=== PATIENT | female | born 1940 | race Hispanic/Latino ===

== ENCOUNTER → 2019-01-24 | Outpatient (CLI) | payer OTHER, MEDICARE ==
[~2019-01-24] MED LIST: ALEN70TA10 PO; AMLO5TAB9 PO; CARB15DR2 OP; INSLAN SQ; SIMV40TA59 PO; SITA100T12 PO; VALS320T16 PO
== END | disposition home or self-care (01) ==
LOC: RAH 12:06
PROVIDERS: ATTEND Internal Medicine
DX: R09.89 Other specified symptoms and signs involving the circulatory and respiratory systems (principal); I73.9 Peripheral vascular disease, unspecified
CPT/HCPCS: 93922

== ENCOUNTER → 2025-04-18 | Outpatient (CLI) | payer OTHER, MEDICAID ==
[~2025-04-18] MED LIST changes: -ALEN70TA10 PO; +ALEN70TA80 PO; +AMLO-257 PO; -AMLO5TAB9 PO; -CARB15DR2 OP; +DEXT1DRO12 OP; -INSLAN SQ; +INSU100V37 SQ; +LEVO25CA5 PO; +TELM40TA8 PO; -VALS320T16 PO
--- NOTE | 2025-04-22 21:48 | HMCSR ---
APPROVED REPORT EXAM: Two-dimensional and M-mode echocardiogram with Doppler and color Doppler. INDICATION ICD: Abnormal electrocardiogram R94.31 2D Dimensions RVDd3.2 cmLVEF(%)64.6 (>50%)LVED Vol(simp.)67.0 mL IVSd1.3 (0.7-1.1cm)FS(%)35 %LVES Vol(simp.)29.0 mL LVDd4.6 (3.8-5.6cm)LA (2D)3.7 (1.6-4.0cm)LVEF(%, simp.)57 % PWd1.1 (0.7-1.1cm)Ao Root(2D)3.0 (2.0-3.7cm)LA ESV INDEX (BP)25.35 mL/m2 IVSs1.7 cmLVOT diam2.0 (1.8-2.4cm) LVDs3.0 (2.5-4.0cm) PWs1.2 cm M-Mode Dimensions EPSS0.5 cm LA (MM)4.0 (1.6-4.0cm) Ao Root(MM)3.4 (2.0-3.7cm) Aortic Valve AoV Vmax1.7 m/Linda Peak GR11.4 mmHgLVOT Vmax1.2 m/s AoV VTI0.4 mAo Mean GR6.0 mmHgLVOT VTI0.31 m RILEY (VMAX)2.29 cm2AVA (VTI) 2.7 cm2 Mitral Valve MV E Vmax83.9 cm/sDECEL [id number] ms MV A Azoe514.0 cm/sP 1/2 T49 ms E/A ratio0.7MVA (PHT)4.5 cm2 TDI E/E' Yvwmjf60.0E/E' Kxebuzs77.3 Medial E' Peak V4.67 cm/sLateral E' Peak V4.14 cm/s Pulmonary Valve PV Vmax1.4 m/sPV VTI0.23 mPV Mean GR3.0 mmHg PV Peak GR7.4 mmHg Tricuspid Valve TR Vmax2.3 m/sRVSP20.3 mmHg TR Peak GR20.3 mmHg Left Ventricle The left ventricle is normal size. There is normal LV segmental wall motion. Mild to moderate concent avani left ventricular hypertrophy. LVEF is 55-60%. Indeterminate diastolic dysfunction. Right Ventricle The right ventricle is normal size. The right ventricular systolic function is normal. Device lead is present in the right ventricle. Atria The left atrium size is normal. The right atrium size is normal. Device lead is present in the right atrium. Aortic Valve The aortic valve is normal in structure. No aortic regurgitation is present. There is no aortic valvu lar stenosis. Mitral Valve The mitral valve is normal in structure. Mitral regurgitation is trace. There is no mitral valve sten osis. Tricuspid Valve The tricuspid valve is normal in structure. There is trace tricuspid valve regurgitation noted. Pulmonic Valve The pulmonary valve is normal in structure. There is no pulmonic valvular regurgitation. Great Vessels The aortic root is normal in size. The IVC is normal in size and collapses >50% with inspiration. Pericardium There is no pericardial effusion. Other Information Quality : Adequate Conclusion LVEF is 55-60%.
== END | disposition home or self-care (01) ==
LOC: RAH 12:41
PROVIDERS: ATTEND Internal Medicine
DX: R94.31 Abnormal electrocardiogram [ECG] [EKG] (principal); I11.9 Hypertensive heart disease without heart failure
CPT/HCPCS: 93306

== ENCOUNTER 2025-09-20 09:22 | Emergency (ER) | payer OTHER, MEDICAID ==
[~2025-09-20] VITALS: Ht 149.9 cm; Wt 74.8 kg
--- NOTE | 2025-09-20 11:13 | HMCIMG ---
EXAM: CR Cervical spine, 5 View. CLINICAL HISTORY: fall COMPARISON: None provided. FINDINGS: BONES: No acute fracture or aggressive appearing osseous lesion. Heights of the vertebral bodies are maintained. Straightening of the expected lordotic curvature. DISCS/DEGENERATIVE CHANGES: Degenerative disc space narrowing C5-6. Anterior marginal spurring of the inferior endplates of C3-C6. Posterior vertebral body alignment is within normal limits. Moderate cervical spondylosis degenerative changes. SOFT TISSUES: No prevertebral soft tissue swelling. The visualized lung apices are clear. IMPRESSION: No acute cervical spine abnormality. Moderate cervical spondylosis. Straightened cervical spine. May represent paraspinal muscular spasm. Clinically correlate. If there are concerns for cervical radiculopathy, MRI exam may be useful for more complete evaluation. /[place]
--- NOTE | 2025-09-20 11:20 | HMCIMG ---
CT OF THE BRAIN WITHOUT CONTRAST CLINICAL INDICATION: Fall TECHNIQUE: Multiple contiguous axial CT images were obtained through the brain without the administration of intravenous contrast. Coronal and sagittal reconstructions were also obtained. COMPARISON: None available FINDINGS: The ventricular system and cortical sulci demonstrate a normal size and configuration for the patients age. There is patchy hypoattenuation of the periventricular, deep, and subcortical matter bilaterally consistent with microangiopathic ischemic disease. There are no extra-axial collections, mass effect, or midline shift. The basal cisterns are patent. The gamino-white matter differentiation is preserved. The midline structures and cervicomedullary junction are unremarkable. There is no evidence of acute intracranial hemorrhage or areas of acute territorial infarction. Vascular calcification is present. No fractures are identified. The calvarium is unremarkable in appearance. No suspicious lytic or sclerotic osseous lesions are seen. There is an air-fluid level within the left sphenoid sinus disease with acute sinusitis. The mastoid air cells are well pneumatized and well aerated. A right intraocular lens implant is identified. There is hyperdense material within the left orbital globe which may represent silicone oill. A left-sided scleral banding device appears to be present. IMPRESSION: 1. No CT evidence of an acute intracranial process. 2. Age-appropriate involutional changes and microangiopathic ischemic disease. 3. Acute left sphenoid sinusitis. /[place]
--- NOTE | 2025-09-20 11:28 | ERN ---
General Chief Complaint: Head Injury Stated Complaint: FALL W/HEAD INJURY Time Seen by MD: 09:29 Source: patient, EMS History of Present Illness Initial Comments Patient is a 74-year-old female coming in after she had a slip and fall. Per patient she was walking down her driveway slipped on some cobblestoning and landed on her back of her head. She states he did not lose consciousness and her main complaint is the occipital region of his scalp. Allergies: Coded Allergies: aspirin (Unverified Allergy, Unknown, 09/13/16) Home Meds Reported Medications Insulin Degludec (Tresiba) 100 Unit/1 Ml Vial, 60 UNIT SQ BID, VIAL 06/24/21 Dextran 70/Hypromellose/Pf (Genteal Tears 0.1%-0.3% Drop) 1 Each Droperette, 1 EACH OP DAILY, DROP 06/24/21 Telmisartan (Telmisartan) 40 Mg Tablet, 40 MG PO DAILY, TAB 06/24/21 Levothyroxine Sodium (Levothyroxine) 25 Mcg Capsule, 25 MCG PO DAILY, CAP 06/24/21 Simvastatin (ZOCOR) 40 Mg Tablet, 40 MG PO HS, TAB 09/13/16 Sitagliptin Phosphate (Januvia) 100 Mg Tablet, 100 MG PO DAILY, TAB 09/13/16 Amlodipine Besylate (Amlodipine Besylate) 5 Mg Tablet, 5 MG PO DAILY, TAB 09/13/16 Alendronate Sodium (Alendronate Sodium) 70 Mg Tablet, 70 MG PO QWEEK, TAB 09/13/16 Past Medical History Past Medical History: Diabetes-Type II, High Cholesterol, Hypertension, Hypothyroid Medical History Other: LEGALLY BLIND Past Surgical History: Appendectomy, Cholecystectomy, Surgical History Other: Eye surgery, arm surgery ROS Dictation CONSTITUTIONAL: No chills, no fever, no weakness, no diaphoresis, no malaise. HEAD/FACE: No signs of trauma. EENT: No eye pain, no blurred vision, no tearing, no double vision, no ear pain, no ear discharge, no nose pain, no nasal congestion, no throat pain, no throat swelling, no mouth pain. RESPIRATORY: No cough, no orthopnea, no SOB, no stridor, no wheezing. CARDIOVASCULAR: No chest pain, no edema, no palpitations, no syncope. GASTROINTESTINAL/ABDOMINAL: No abdominal pain, no constipation, no diarrhea, no nausea, no vomiting. GENITOURINARY: No abnormal discharge, no dysuria, no frequent urination, no hematuria. No complaints of pain in the genitals. MUSCULOSKELETAL: No back pain, no gout, no joint pain, no joint swelling, no muscle pain, no muscle stiffness, no neck pain. INTEGUMENTARY: No change in color, no change in hair/nails, no dryness, no lesion, no lumps, no rash. NEUROLOGICAL/PSYCH: No anxiety, not depressed, no emotional problem, no headache, no numbness, no pre-existing deficit, no history of seizures, no tremors, no weakness. HEMATOLOGIC/LYMPHATIC: Not anemic, no history of blood clots, no apparent bleeding, no bruising, glands not swollen. All Systems Negative, Except as Noted. Physical Exam Physical Exam Dictation VITAL SIGNS: Reviewed. GENERAL APPEARANCE: Alert, oriented x3, no acute distress, obese. HEAD AND FACE: Non-traumatic. EYES: PERRL, pink conjunctivas, eyelid no trauma, anterior chamber clear. EARS: Pinnas intact and no signs of trauma or erythema. Ear canals clear and no discharge. TMs no erythema. NOSE: No discharge, no bleeding. OROPHARYNX: Mouth normal, teeth no caries, tongue pink. Pharynx clear, no erythema. Tonsils no exudates, no abscesses noted. Mucous membrane moist. NECK: Supple, non-tender, no thyromegaly, no masses, no JVD, no bruits. BREAST: Deferred. CHEST: No tenderness, no crepitus, no paradoxical movement, no retractions. LUNGS: Clear, well-ventilated, symmetric, no rales, no wheezing, no rhonchi, no stridor, good breath sounds bilaterally. HEART: Regular rate, regular rhythm, no murmur, no gallops. VASCULAR: No peripheral edema. ABDOMEN: Soft, positive bowel sounds, nondistended, no guarding, nontender, no rebound, no masses no hepatomegaly, no splenomegaly, no Villa's sign, no hernias. RECTAL: Deferred. GENITAL: Deferred. NEUROLOGICAL: Normal speech, gross motor function intact, gross sensory function intact. MUSCULOSKELETAL: Neck nontender, full range of motion, back nontender, full range of motion. EXTREMITIES: Nontender, full range of motion. SKIN: Color pink, dry, no turgor, no rash, no lacerations, no abrasions, no contusions. LYMPHATICS: Deferred. Results Laboratory and Microbiology Labs Reviewed?: Yes EKG/XRAY/US/CT/MRI X-RAY Comment IMAGING REPORT Signed PATIENT: AZALIA HAWKINS MR#: [id number] : 1940 SEX: F AGE: 84 LOCATION: [facility] ORDER 2 STATUS: REG ER REPORT#: [id number] SERVICE 1 REASON: fall ORDERING PHYSICIAN: YUMI RILEY MD PROCEDURE: CERV 2 3VW - CERV SPINE 2-3VWS EXAM: CR Cervical spine, 5 View. CLINICAL HISTORY: fall COMPARISON: None provided. FINDINGS: BONES: No acute fracture or aggressive appearing osseous lesion. Heights of the vertebral bodies are maintained. Straightening of the expected lordotic curvature. DISCS/DEGENERATIVE CHANGES: Degenerative disc space narrowing C5-6. Anterior marginal spurring of the inferior endplates of C3-C6. Posterior vertebral body alignment is within normal limits. Moderate cervical spondylosis degenerative changes. SOFT TISSUES: No prevertebral soft tissue swelling. The visualized lung apices are clear. IMPRESSION: No acute cervical spine abnormality. Moderate cervical spondylosis. Straightened cervical spine. May represent paraspinal muscular spasm. Clinically correlate. If there are concerns for cervical radiculopathy, MRI exam may be useful for more complete evaluation. /[place] DICTATED BY: FRANCOIS POWELL Jr., MD DATE: 09/20/251211 ELECTRONICALLY SIGNED BY: FRANCOIS POWELL Jr., MD DATE: 09/20/251211 CT Scan Comment [address] [address] IMAGING REPORT Signed PATIENT: AZALIA HAWKINS MR#: [id number] : 1940 SEX: F AGE: 84 LOCATION: [facility] ORDER 0 STATUS: REG ER REPORT#: [id number] SERVICE 9 REASON: fall ORDERING PHYSICIAN: YUMI RILEY MD PROCEDURE: HEAD WO - CT HEAD/BRAIN W/O CONTRAST CT OF THE BRAIN WITHOUT CONTRAST CLINICAL INDICATION: Fall TECHNIQUE: Multiple contiguous axial CT images were obtained through the brain without the administration of intravenous contrast. Coronal and sagittal reconstructions were also obtained. COMPARISON: None available FINDINGS: The ventricular system and cortical sulci demonstrate a normal size and configuration for the patients age. There is patchy hypoattenuation of the periventricular, deep, and subcortical matter bilaterally consistent with microangiopathic ischemic disease. There are no extra-axial collections, mass effect, or midline shift. The basal cisterns are patent. The gamino-white matter differentiation is preserved. The midline structures and cervicomedullary junction are unremarkable. There is no evidence of acute intracranial hemorrhage or areas of acute territorial infarction. Vascular calcification is present. No fractures are identified. The calvarium is unremarkable in appearance. No suspicious lytic or sclerotic osseous lesions are seen. There is an air-fluid level within the left sphenoid sinus disease with acute sinusitis. The mastoid air cells are well pneumatized and well aerated. A right intraocular lens implant is identified. There is hyperdense material within the left orbital globe which may represent silicone oill. A left-sided scleral banding device appears to be present. IMPRESSION: 1. No CT evidence of an acute intracranial process. 2. Age-appropriate involutional changes and microangiopathic ischemic disease. 3. Acute left sphenoid sinusitis. /[place] DICTATED BY: SUSANA GUERRERO MD DATE: 09/20/251218 ELECTRONICALLY SIGNED BY: SUSANA GUERRERO MD DATE: 09/20/251218 [facility] MDM: Differential diagnosis: Fall, scalp contusion, scalp laceration, Rationale: Tests considered and ordered secondary to shared decision making include: Previous outside records reviewed: Old ER visits. Risk of complication and/or morbidity or mortality of patient management: None Medications-Per medication reconciliation Need for hospitalization: Patient does not meet criteria for hospitalization. Need for emergency major/minor surgery: No There are no social concerns with this patient. In his is a an 84-year-old female coming in after she slipped and fell down hitting herself in the back of the scalp. She states that she did not lose consciousness but is here for further evaluation. She also states that she does not have pain anywhere else. On evaluation CT did not disclose acute findings. It was a laceration in the back of her occipital region which was fixed with five sutures. Patient tolerated procedure well we will be discharged in stable condition. Patient was monitored for 30-45 minutes one sutures were placed no bleeding observed. ED Course Orders Procedure Category Date Status Time Ct Head/Brain W/O CT 09/20/25 Resulted Contrast 09:30 Cerv Spine 2-3vws RAD 09/20/25 Resulted 09:32 Tetanus,Diphtheria PHA 09/20/25 Complete Tox [Adult] (Diphther 10:00 Lidocaine Hcl 1% 20ml PHA 09/20/25 Complete Vial (Lidocaine Hc 11:52 Bacitracin PHA 09/20/25 Complete (Bacitracin) 12:04 Bacitracin PHA 09/20/25 Verified (Bacitracin) 12:30 Current Medications Medications (Trade) Dose Ordered Sig/Martín Route PRN Reason Start Time Stop Time Status Last Admin Dose Admin Bacitracin (Bacitracin) 1 each STK-MED ONCE TP 09/20/25 12:04 09/20/25 12:04 DC Lidocaine HCl (Lidocaine HCl 1% 20ml Vial) 20 ml STK-MED ONCE .ROUTE 09/20/25 11:52 09/20/25 11:52 DC Tetanus/ Diphtheria Toxoids Adsorbed (DiphthERIA-teTANUS TOXOID [ADULT]/ DECAVAC) 0.5 ml ONCE ONCE IM 09/20/25 10:00 09/20/25 10:01 DC 09/20/25 11:11 Vital Signs Date Time Temp Pulse Resp B/P (MAP) Pulse Ox O2 Delivery O2 Flow Rate FiO2 09/20/25 11:00 97.9 69 18 194/68 98 Room Air* 0 21 09/20/25 09:34 97.9 69 18 194/68 98 Room Air 0 Laceration/Wound Repair Laceration/Wound Repair : Wound Location: head Wound Length (cm): 4 Wound's Depth, Shape: superficial Wound Explored: clean Irrigated w/ Saline (ccs): 100 Anesthesia: 1% Lidocaine Volume Anesthetic (ccs): 5 Wound Repaired With: sutures Suture Size/Type: proline Number of Sutures: 5 Layer Closure?: Yes DX & DISP Disposition: Discharge Departure Impression: Primary Impression: Scalp laceration Additional Impression: Accident due to mechanical fall without injury Condition: Stable Scripts Cephalexin Monohydrate (Keflex) 500 Mg Cap 1 CAP PO TID for 7 Days, #30 CAP 0 Refills Prov: YUMI RILEY MD 09/20/25 Additional Instructions: FOLLOW-UP WITH PRIMARY CARE PROVIDER IN 1 TO 2 DAYS. TAKE MEDICATIONS DIRECTED HERE IN THE EMERGENCY ROOM. OKAY TO CONTINUE HOME MEDICATIONS UNLESS OTHERWISE DISCUSSED DURING YOUR VISIT IN THE EMERGENCY ROOM TODAY. RETURN TO YOUR NEAREST EMERGENCY ROOM IF SYMPTOMS WORSEN OR IF THERE IS NO IMPROVEMENT. CALL 911 IF YOU NEED IMMEDIATE ASSISTANCE. TAKE TYLENOL [id number] NEEDED AND IF NO CONTRAINDICATIONS ARE PRESENT. INCREASE ORAL HYDRATION. A WOUND CULTURE OR URINE CULTURE WAS ORDERED HERE IN THE EMERGENCY ROOM DEPARTMENT PLEASE FOLLOW-UP WITH PRIMARY CARE PROVIDER AND ADVISE THEM TO GET REPORTS FROM OUR FACILITY. IF YOU HAD ANY IRVIN WRAP/SPLINTS THAT WERE APPLIED HERE, PLEASE DO NOT REMOVE THEM UNTIL YOU SEE YOUR PRIMARY CARE OR SPECIALTY. Referrals: Referrals: JENNA NAVARRO MD (PCP) Time of Disposition: 12:10 YUMI RILEY MD Sep 20, 2025 11:28
[2025-09-20] MEDS ORDERED: CEPH500B PO (12:11)
[2025-09-20] MEDS: BACITRACIN 1 EACH PACKET TP ONE ×2 (12:15→12:16)
[2025-09-20 12:35] VITALS: BP 156/96; PULSE 79; RESP 20; TEMP 97.9; O2SAT 98
[2025-09-20] MEDS: LIDOCAINE HCL 1% 20 ML VIAL ONE (12:35)
[2025-09-20] MEDS: LIDOCAINE HCL 1% 20 ML VIAL INJ ONE (12:35)
== END 2025-09-20 12:43 | disposition home or self-care (01) ==
LOC: EDH 09:22
DX: S01.01XA Laceration without foreign body of scalp, initial encounter (principal); E11.9 Type 2 diabetes mellitus without complications; E03.9 Hypothyroidism, unspecified; E78.00 Pure hypercholesterolemia, unspecified; I10 Essential (primary) hypertension; H54.8 Legal blindness, as defined in USA; Z88.6 Allergy status to analgesic agent; Z79.899 Other long term (current) drug therapy; Z79.84 Long term (current) use of oral hypoglycemic drugs; Z79.890 Hormone replacement therapy; Y93.01 Activity, walking, marching and hiking; Z79.4 Long term (current) use of insulin; Z90.49 Acquired absence of other specified parts of digestive tract; W01.0XXA Fall on same level from slipping, tripping and stumbling without subsequent striking against object, initial encounter; Y93.89 Activity, other specified; Y92.89 Other specified places as the place of occurrence of the external cause; Y99.8 Other external cause status
CPT/HCPCS: 0031A; 12002; 70450; 72040; 90471; 90714; 91303; 99285